=== PATIENT | female | born 1990 | race Caucasian/White ===

== ENCOUNTER 2018-12-24 13:15 | Emergency (ER) | payer SELFPAY ==
[2018-12-24 13:20] VITALS: BP 146/95; PULSE 64; RESP 16; TEMP 36.3; O2SAT 95
--- NOTE | 2018-12-24 14:09 | DI.RAD_ITS ---
SYMPTOMS/DIAGNOSIS: BACK PAIN THORACIC SPINE: Two views were obtained. There are Cash rods extending from T12 into the lumbar region. The intervertebral disc spaces are fairly well maintained. There is mild chronic anterior wedging of T11 vertebra, probably developmental. No other significant bony abnormality seen.
[2018-12-24] MEDS: Lidocaine 5% Patch 1 PATCH TP (14:39)
[2018-12-24] MEDS: Acetaminophen 500 MG TAB 1000 MG PO (14:41)
[2018-12-24] MEDS: Ibuprofen 600 MG TAB PO (14:41)
--- NOTE | 2018-12-24 15:22 | ED.GENADUL_ITS ---
Discharge Plan Disposition Patient Disposition: HOME Discharge Details Chief Complaint: Nk/Back Pain Primary Care Provider: None,None ED Provider: Gregor Mead Home Meds and New Rx's Prescriptions: New cyclobenzaprine 10 mg tablet 10 mg PO TID PRN (Reason: muscle spasm) Qty: 20 RF: 0 Continued levothyroxine 100 mcg Capsule 100 mcg PO DAILY RF: 0 Discharge Data Discharge Date/Time-TO BE ENTERED AT DEPARTURE: 12/24/18 15:33 Medical Decision Making Back pain x1 week, history of back fracture with repair 4 years ago, worsening pain and discomfort over the last 24 hours. Paraspinal tenderness to the right mid thoracic spine, mild midline to no other abnormalities noted. Given previous fracture and patient complaining of worsening back pain plan to do radiological imaging but highly suspicious of thoracic strain. Review of imaging shows no acute findings and appropriate hardware with no abnormalities. Patient reassessed after receiving lidocaine patch, Tylenol Motrin and did state slight improvement. Patient was also prescribed Flexeril given that she reports spasms that are not currently present and further encouraged to use Tylenol Motrin and [id number] lidocaine for discomfort. Return precautions discussed. After discussion of diagnosis and plan of care patient has no further needs, questions, or concerns and states clear understanding to return to the emergency department for any worsening symptoms. HPI General Mode of arrival: ambulatory . Date/Time Provider Initiated Documentation: 12/24/18 13:22 . Limitations to Documentation: no limitations . Information obtained by: patient, family and RN notes reviewed . History of Present Illness 28 year old F presents to the emergency department with the chief complaint of back pain, described as moderate and similar to prior episodes, with intensity rated at 8. Quality is described as aching and sharp, and is localized to the back. Patient started experiencing this week(s) (1) and it has been constant. Rest improves symptom(s), Movement worsens symptoms . Patient notes no other symptoms.. Patient did receive the following treatments prior to arrival, none Related Data Home Medications Medication Instructions Recorded Confirmed cyclobenzaprine 10 mg PO TID PRN #20 tab 12/24/18 levothyroxine 100 mcg PO DAILY 12/24/18 12/24/18 Previous Rx's Medication Instructions Recorded cyclobenzaprine 10 mg PO TID PRN #20 tab 12/24/18 Allergies Allergy/AdvReac Type Severity Reaction Status Date / Time medical tape Allergy Uncoded 12/24/18 13:23 General Stated Complaint: Nk/Back Pain TARAH: 4 Review of Systems Constitutional Denies chills and Denies fever(s) Cardiovascular Denies chest pain and Denies dyspnea on exertion Respiratory Denies cough and Denies dyspnea on exertion Gastrointestinal Denies abdominal pain, Denies change in bowel habits, Denies diarrhea, Denies nausea and Denies vomiting Musculoskeletal Reports as per HPI and Reports back pain Neurologic Denies sensory deficit PFS Social History Smoking/Tobacco Use Status: Never Alcohol Intake: never Substance use type: marijuana Exam Const General: cooperative and no acute distress Orientation: alert, awake and oriented x3 Neck Neck: normal visual inspection, full ROM and no meningeal signs Resp Effort & Inspection: normal respiratory effort Auscultation: clear to auscultation bilaterally Cardio Rate: regular rate Rhythm: regular rhythm Heart Sounds: S1 normal and S2 normal Back/Spine/Pelvis Back: no CVA tenderness Cervical Spine: cervical ROM normal Thoracic/Lumbar Spine: pain with thoraco-lumbar ROM, paraspinal tenderness (righ mid thoracic), No thoraco-lumbar spasm, thoracic spinal tenderness (Mild mid) and No lumbar spinal tenderness Course Vital Signs Temperature 36.3 C L 12/24/18 13:20 Pulse 64 12/24/18 13:20 Respiratory Rate 16 12/24/18 13:20 Blood Pressure 146/95 H 12/24/18 13:20 Pulse Oximetry 95 12/24/18 13:20 Temperature 36.3 C L 12/24/18 13:20 Temperature Source Skin 12/24/18 13:20 Pulse 64 12/24/18 13:20 Respiratory Rate 16 12/24/18 13:20 Respiratory Effort Non-Labored 12/24/18 13:20 Blood Pressure 146/95 H 12/24/18 13:20 Blood Pressure Position Sitting 12/24/18 13:20 Pulse Oximetry 95 12/24/18 13:20 Oxygen Delivery Method Room Air 12/24/18 13:20 Oxygen Flow Rate 0 12/24/18 13:20 Pain Level 8 12/24/18 14:41 Lab/Test Results Lab/Test Results: POC- Test(urine) Negative
== END 2018-12-24 15:33 | disposition home or self-care (01) ==
PROVIDERS: Emergency Provider Nurse Practitioner Family
DX: S29.012A Strain of muscle and tendon of back wall of thorax, initial encounter (principal); X58.XXXA Exposure to other specified factors, initial encounter
CPT/HCPCS: 99283; 72072

== ENCOUNTER 2021-06-13 02:56 | Outpatient (CLI) | payer OTHER, SELFPAY ==
--- NOTE | 2021-06-13 09:45 | DI.MRI_ITS ---
Exam(s) MR BRAIN WO/W EXAM: MR BRAIN WO/W CLINICAL HISTORY: PARESTHESIA OF LOWER EXTREMITY, R20.2 TECHNIQUE: Multiplanar multisequence MRI of the brain was performed. Both noninfused and contrast i nfused sequences were performed. IV Contrast injected was cc Dotarem. COMPARISON: No exams were available for comparison FINDINGS: CEREBRAL PARENCHYMA: No evidence of intracranial hemorrhage, mass effect nor shift of midline structu re. No extraaxial fluid collections. Ventricles are not enlarged nor shifted. There is no significant focal signal abnormality in the cerebellar hemispheres nor within the rosa, m idbrain, and thalami. There is no abnormal signal abnormality in the periventricular white matter. There are no ring enhancing lesions in the brain. There is no abnormal meningeal enhancement. DWI: No abnormal signal to suggest restricted diffusion SWI: Susceptibility imaging reveals no obvious microhemorrhages PITUITARY GLAND: No mass nor parasellar abnormality. No obvious abnormality in the cavernous sinuses. FLOW VOIDS: The expected flow void are noted. No evidence of obvious aneurysm nor obvious vascular ma lformation. PARANASAL SINUSES: The visualized paranasal sinuses appear unremarkable. However, there is hypertroph ied adenoid tissue, more so than expected in this age group. ORBITS: No obvious abnormal findings. OTHER: IMPRESSION: 1. No significant intracranial findings on this MRI scan of the brain. 2. No abnormal enhancing intracranial findings. 3. No evidence of demyelinating lesions. Incidentally noted is symmetrically hypertrophy adenoid tissue in the nasopharynx, more so than is us ually seen in this age group. Recommend ENT consultation. DATA REPOSITORY:
[2021-06-13] MEDS: Gadoterate meglumine 20 ML VIAL IVP (09:50)
[2021-06-13] MEDS: Normal Saline Flush 10 ML SYR IVP (09:50)
== END 2021-06-13 03:16 ==
PROVIDERS: Visit Provider Registered Nurse
DX: R20.2 Paresthesia of skin (principal); J35.2 Hypertrophy of adenoids
CPT/HCPCS: 70553